=== PATIENT | female | born 1950 | race Caucasian/White ===

== ENCOUNTER → 2018-09-22 | Outpatient (CLI) | payer MEDICARE ==
[~2018-09-22] MED LIST: ASPI81CH PO; CHOL10002 PO; Cardizem CD 12120 MG PO; Coq-10100 MG PO; FISH OIL 1,3601 EACH PO; FLAX PO; MAGOXI400 PO; MEGA TAURINE1000 MG PO; PROBIOTIC1 EAC4 PO; Prinivil10 MG PO; XARELTO15 MG PO
== END ==
LOC: LAB SHORT 19:08 → LAB 19:08
DX: N39.0 Urinary tract infection, site not specified (principal)
CPT/HCPCS: 87086

== ENCOUNTER 2020-07-03 06:17 | Day surgery (SDC) | payer MEDICARE ==
[~2020-07-03] VITALS: Ht 167.6 cm; Wt 66.8 kg
[~2020-07-03 06:17] MED LIST changes: +DHEA PO; +Estradiol1 MG PO; +LEVSOD75 PO; +MULTI-VITAMIN1 EAC2 PO; +PRAV20 PO; +PROG100 PO; +TESTOSTERONE IM; +XARELTO20 M1 PO
[2020-07-03] MEDS ORDERED: Aldactone50 MG PO (06:52)
[2020-09-07] MEDS ORDERED: HYDR1TAB94 PO (13:23)
[2020-09-07] MEDS ORDERED: PROM25 PO (13:23)
== END 2020-07-03 08:55 | disposition home or self-care (01) ==
LOC: ORSCSDS 06:17
PROVIDERS: Obstetrics & Gynecology
PROC: 0UDB8ZX Extraction of Endometrium, Via Natural or Artificial Opening Endoscopic, Diagnostic (ICD-10-PCS; principal; 2020-07-03 07:30)
DX: N95.0 Postmenopausal bleeding (principal); N84.0 Polyp of corpus uteri; I48.91 Unspecified atrial fibrillation; I10 Essential (primary) hypertension; E05.90 Thyrotoxicosis, unspecified without thyrotoxic crisis or storm; Z79.01 Long term (current) use of anticoagulants; Z79.899 Other long term (current) drug therapy
CPT/HCPCS: 88305; J0690; J1100; J1885; J2250; J2405; J2704; J3010

== ENCOUNTER 2022-01-31 12:06 | Emergency (ER) | payer MEDICARE ==
[~2022-01-31] VITALS: Ht 167.6 cm; Wt 72.1 kg
[~2022-01-31 12:06] MED LIST changes: +Aldactone50 MG PO; +HYDR1TAB94 PO; +PROM25 PO
== END 2022-01-31 14:44 | disposition home or self-care (01) ==
LOC: ER 12:06
DX: M79.651 Pain in right thigh (principal); I10 Essential (primary) hypertension; Z79.899 Other long term (current) drug therapy; Z79.01 Long term (current) use of anticoagulants
CPT/HCPCS: 93971

== ENCOUNTER 2023-03-05 17:00 | Emergency (ER) | payer MEDICARE ==
[~2023-03-05] VITALS: Ht 167.6 cm; Wt 72.6 kg
[2023-03-05 17:54] LABS: BASOPHILS ABSOLUTE AUTO 0.07 K/mm3 (0.00-0.23); BASOPHILS PERCENT AUTO 1 % (0-2); EOSINOPHILS ABSOLUTE AUTO 0.25 K/mm3 (0.00-0.68); EOSINOPHILS PERCENT AUTO 2 % (0-6); Hematocrit 44.7 % (33.0-51.0); Hemoglobin 14.9 g/dL (11.5-16.0); IMMATURE GRAN ABSOLUTE AUTO 0.03 K/mm3 (0.00-0.10); IMMATURE GRAN PERCENT AUTO 0 % (0-1); LYMPHOCYTES ABSOLUTE AUTO 2.99 K/mm3 (0.84-5.20); LYMPHOCYTES PERCENT AUTO 27 % (21-46); MONOCYTES ABSOLUTE AUTO 0.65 K/mm3 (0.16-1.47); MONOCYTES PERCENT AUTO 6 % (4-13); Mean Corpuscular HGB 29.6 pg (26.0-34.0); Mean Corpuscular HGB Conc 33.3 g/dL (31.5-36.5); Mean Corpuscular Volume 89 fL (80-100); Mean Platelet Volume 10.3 fL (9.1-12.4); NEUTROPHILS ABSOLUTE AUTO 7.14 K/mm3 (1.96-9.15); NEUTROPHILS PERCENT AUTO 64 % (41-73); Platelet Count 393 K/mm3 (150-400); RDW Coefficient Variation 12.1 % (11.7-14.2); RDW Standard Deviation 39.2 fL (35.1-46.3); Red Blood Cell Count 5.03 M/mm3 (3.80-5.20); White Blood Cell Count 11.13 K/mm3 (4.00-11.30)
[2023-03-05 18:01] LABS: Albumin, Blood 4.5 g/dL (3.4-5.0); Albumin/Globulin Ratio 1.2 (0.8-1.8); Bilirubin, Total 0.6 mg/dL (0.1-1.0); Bun/Creatinine Ratio 12.7 (12.0-20.0); Calcium, Blood 9.7 mg/dL (8.5-10.1); Creatinine, Blood 1.1 mg/dL (0.40-1.00); Globulin, Blood 3.7 g/dL (2.2-4.0); Potassium, Blood 3.4 mmol/L (3.5-5.5); Total Protein, Blood 8.2 g/dL (6.4-8.2)
[2023-03-05 19:30] VITALS: BP 167/97
[2023-03-05] MEDS ORDERED: HYDR1TAB94 PO (19:37)
== END 2023-03-05 20:01 | disposition home or self-care (01) ==
LOC: ER 17:00
PROVIDERS: Student in an Organized Health Care Education/Training Program
DX: S82.851A Displaced trimalleolar fracture of right lower leg, initial encounter for closed fracture (principal); E87.6 Hypokalemia; I10 Essential (primary) hypertension; I48.91 Unspecified atrial fibrillation; E06.3 Autoimmune thyroiditis; Z88.6 Allergy status to analgesic agent; Z79.01 Long term (current) use of anticoagulants; Z79.899 Other long term (current) drug therapy; W10.9XXA Fall (on) (from) unspecified stairs and steps, initial encounter
CPT/HCPCS: 27818; 73590; 73600; 73610; 80053; 85025; 93005; 93010; 96374-59; 96375-59; 99152; 99284-25; A9270; J2405; J2704; J3010; J7030

== ENCOUNTER 2023-03-19 12:02 | Day surgery (SDC) | payer MEDICARE ==
[2023-03-19] VITALS (23 sets, daily range): BP systolic 124–180; BP diastolic 59–104
[~2023-03-19] VITALS: Ht 167.6 cm; Wt 68.2 kg
--- NOTE | 2023-03-19 12:15 | NUR ---
PT TO DAY SURGERY FOR OPEN REDUCTION INTERNAL FIXATION RIGHT ANKLE FRACTURE. PLAN OF CARE DISCUSSED. PT DAUGHTER IS AT BEDIDE AND WILL BE RIDE HOME.
--- NOTE | 2023-03-19 17:36 | NUR ---
PT ARRIVED TO [facility] VIA [facility]. PT REPORTING 10/10 PAIN IN RIGHT ANKLE. NO NAUSEA REPORTED. PT GIVEN ICE CHIPS AND APPLESAUSE. DAUGHTER AT BEDSIDE. VSS. ICE UNDER RIGHT KNEE AND ON ANTERIOR ANKLE.
--- NOTE | 2023-03-19 18:14 | NUR ---
PT REPORTED PAIN OF 10/10. DR CHAVEZ CONTACTED ABOUT PAIN. DR CHAVEZ REQUESTED A NERVE BLOCK. DR SCHULTE TO [facility] AND PERFORMED NERVE BLOCK. PT'S DAUGHTER'S AT BEDSIDE. PT UNABLE TO TOLERATE APPLE SAUCE AND WATER WITHOUT REPORTING FEELING NAUSEATED. SEE EMAR FOR NAUSEA MEDS GIVEN.
--- NOTE | 2023-03-19 18:32 | NUR ---
PT DAUGHTERS REQUESTING PT STAYS THE NIGHT DUE TO PT PAIN AND CONCERNS RELATED TO STEPS INTO THE HOME. PT DOES REPORT NAUSEA IS BETTER AND PAIN NOW 6/10 POST NERVE BLOCK. THIS RN CALLED DR CHAVEZ WHO AGREED PT CAN STAY THE NIGHT AND ADMIT TO HOSPITALIST SERVICE. THIS RN CALLED DR WINTERS, WHO WILL SEE PT IN APPROX 5-10 MINUTES. SURGICAL FLOOR BURIAL VAULT SETTER NOTIFIED, PT WILL GO TO ROOM 221.
--- NOTE | 2023-03-19 18:49 | NUR ---
ASSUMED PT CARE KVNG FONTANEZ RN. NO CHANGES. PT CIRCULATION REMAINS INTACT ON, RLE, DRESSING REMAINS CDI. PT LEG ELEVATED AND ICED. PT IS MUCH MORE COMFORTABLE AND ABLE TO REST BETTER SINCE BLOCK WAS GIVEN BY DR SCHULTE. REPORT TO LENO GUILLEN RN
[2023-03-20 02:52] VITALS: BP 136/64
[2023-03-20 05:56] LABS: BASOPHILS ABSOLUTE AUTO 0.02 K/mm3 (0.00-0.23); BASOPHILS PERCENT AUTO 0 % (0-2); EOSINOPHILS PERCENT AUTO 0 % (0-6); Hematocrit 35.4 % (33.0-51.0); Hemoglobin 11.6 g/dL (11.5-16.0); IMMATURE GRAN ABSOLUTE AUTO 0.06 K/mm3 (0.00-0.10); IMMATURE GRAN PERCENT AUTO 0 % (0-1); LYMPHOCYTES ABSOLUTE AUTO 0.57 K/mm3 (0.84-5.20); LYMPHOCYTES PERCENT AUTO 4 % (21-46); MONOCYTES ABSOLUTE AUTO 0.93 K/mm3 (0.16-1.47); MONOCYTES PERCENT AUTO 7 % (4-13); Mean Corpuscular HGB 29.9 pg (26.0-34.0); Mean Corpuscular HGB Conc 32.8 g/dL (31.5-36.5); Mean Corpuscular Volume 91 fL (80-100); Mean Platelet Volume 9.6 fL (9.1-12.4); NEUTROPHILS ABSOLUTE AUTO 11.78 K/mm3 (1.96-9.15); NEUTROPHILS PERCENT AUTO 88 % (41-73); Platelet Count 610 K/mm3 (150-400); RDW Coefficient Variation 12.7 % (11.7-14.2); RDW Standard Deviation 41.6 fL (35.1-46.3); Red Blood Cell Count 3.88 M/mm3 (3.80-5.20); White Blood Cell Count 13.36 K/mm3 (4.00-11.30)
--- NOTE | 2023-03-20 06:36 | NUR ---
SHIFT SUMMARY PT IS POD#1 FOR AN ELECTIVE OPEN REDUCTION AND INTERNAL FIXATION OF HER RIGHT TRIMALLEOLAR ANKLE FX. PT'S PAIN HAS BEEN WELL CONTROLLED PER EMAR AND A BLOCK ADMINISTERED BEFORE THE PT CAME TO THE FLOOR AT 1855 YESTERDAY (03/19/23). PT HAS GOTTEN UP TWICE THIS SHIFT TO URINATE AND CAN STAND AND PIVOT WELL WITH A FWW AND GAIT BELT TO THE BEDSIDE COMMODE. VITAL SIGNS HAVE BEEN STABLE THROUGHOUT THE SHIFT AND NO ACUTE EVENTS OCCURRED DURING THE NIGHT. BED IS IN LOWEST POSITION WITH THE PT'S CALL LIGHT BEING WITHIN REACH.
[2023-03-20 06:37] LABS: Bun/Creatinine Ratio 18.4 (12.0-20.0); Calcium, Blood 8.9 mg/dL (8.5-10.1); Creatinine, Blood 0.87 mg/dL (0.40-1.00); Potassium, Blood 4.1 mmol/L (3.5-5.5)
[2023-03-20 07:29] VITALS: BP 140/58
--- NOTE | 2023-03-20 14:57 | NUR ---
DISCHARGE SUMMARY S/P R ANKLE ORIF, A/OX4, VSS, TOLERATING PO, ABLE TO STAND PIVOT WELL WITH MINIMAL ASSISTANCE, SPINT WITH GAUZE AND KHARI WRAP TO R FOOT/ANKLE, PT REPORTS PAIN TOLERABLE. DISCUSSED DISCHARGE INSTRUCTIONS WITH THE PATIENT INCLUDING HOME CARE, MEDICATIONS, AND FOLLOW UP APPPOINTMENTS. IV ACCESS REMOVED PRIOR TO DC, PT ESCORTED OUT VIA WC TO PRIVATE AUTO TO GO HOME.
== END 2023-03-20 12:28 | disposition home or self-care (01) ==
LOC: ORSCMMR 12:02 → ORD 15:00 → SURS 18:50 → ORSCMMR 03-20 12:28
PROVIDERS: Family Medicine
DX: S82.851A Displaced trimalleolar fracture of right lower leg, initial encounter for closed fracture (principal); I48.91 Unspecified atrial fibrillation; I10 Essential (primary) hypertension; E78.5 Hyperlipidemia, unspecified; E07.9 Disorder of thyroid, unspecified; Z79.01 Long term (current) use of anticoagulants; Z79.899 Other long term (current) drug therapy
CPT/HCPCS: 36415; 80048; 85025; 97110; 97161; A9270; C1713; C1769; J0690; J1100; J1170; J2405; J2704; J2765; J3010; J7120

== ENCOUNTER 2024-11-22 07:51 | Observation (INO) | payer MEDICARE ==
[~2024-11-22] VITALS: Ht 167.6 cm; Wt 73.9 kg
[~2024-11-22 07:51] MED LIST changes: -CHOL10002 PO; -PROG100 PO; +ROSUVASTATIN CAL5 MG PO
[2024-11-22 08:16] LABS: BASOPHILS ABSOLUTE AUTO 0.07 K/mm3 (0.00-0.23); BASOPHILS PERCENT AUTO 1 % (0-2); EOSINOPHILS ABSOLUTE AUTO 0.36 K/mm3 (0.00-0.68); EOSINOPHILS PERCENT AUTO 3 % (0-6); Hematocrit 44.5 % (33.0-51.0); Hemoglobin 14.9 g/dL (11.5-16.0); IMMATURE GRAN ABSOLUTE AUTO 0.02 K/mm3 (0.00-0.10); IMMATURE GRAN PERCENT AUTO 0 % (0-1); LYMPHOCYTES ABSOLUTE AUTO 2.48 K/mm3 (0.84-5.20); LYMPHOCYTES PERCENT AUTO 23 % (21-46); MONOCYTES ABSOLUTE AUTO 0.70 K/mm3 (0.16-1.47); MONOCYTES PERCENT AUTO 7 % (4-13); Mean Corpuscular HGB Conc 33.5 g/dL (31.5-36.5); Mean Corpuscular Volume 89 fL (80-100); NEUTROPHILS ABSOLUTE AUTO 6.99 K/mm3 (1.96-9.15); NEUTROPHILS PERCENT AUTO 66 % (41-73); NRBC ABSOLUTE 0.00 K/mm3 (0.00-0.02); NRBC Auto 0.0 /100 WBC (0.0-0.2); Platelet Count 404 K/mm3 (150-400); RDW Coefficient Variation 12.2 % (11.7-14.2); RDW Standard Deviation 39.8 fL (35.1-46.3)
[2024-11-22 08:56] LABS: Alanine Aminotransfer (ALT/SGP 26.0 U/L (12-78); Albumin, Blood 4.1 g/dL (3.4-5.0); Albumin/Globulin Ratio 1.1 (0.8-1.8); Anion Gap 8.0 mmol/L (3-11); Aspartate Aminotrans (AST/SGOT 19.0 U/L (12-37); Bilirubin, Total 0.7 mg/dL (0.1-1.0); Blood Urea Nitrogen 19.0 mg/dL (8-24); CO2, Blood 27.0 mmol/L (21-32); Calcium, Blood 9.9 mg/dL (8.5-10.1); Chloride, Blood 105.0 mmol/L (98-108); Creatinine, Blood 0.98 mg/dL (0.40-1.00); Globulin, Blood 3.7 g/dL (2.2-4.0); Glucose, Blood 127.0 mg/dL (70-99); Potassium, Blood 3.8 mmol/L (3.5-5.5); Sodium, Blood 136.0 mmol/L (136-145); Total Protein, Blood 7.8 g/dL (6.4-8.2)
[2024-11-22] MEDS ORDERED: LOSARTAN POTAS100 M1 PO (09:07)
[2024-11-22] MEDS ORDERED: Ondansetron HCl 2 MG / ML 2ML Vial IV PRN (15:05)
[2024-11-22 18:21] VITALS: BP 168/70
[2024-11-22 19:16] VITALS: BP 150/66
--- NOTE | 2024-11-22 22:53 | NUR ---
SHIFT SUMMARY AT START OF SHIFT, PT S DAUGHTER IN ROOM. LEFT APPROX 2029. PT PLEASANT AND SITTING UP IN BED. TRANSFERRED CARE TO [facility] APPROX 2129.
[2024-11-22 23:41] VITALS: BP 171/63
[2024-11-23] VITALS (7 sets, daily range): BP systolic 129–168; BP diastolic 61–74
[2024-11-23] MEDS ORDERED: HydrALAZINE HCl 20 MG / ML 1ML Vial IV ONE (01:05)
[2024-11-23 05:17] LABS: BASOPHILS ABSOLUTE AUTO 0.05 K/mm3 (0.00-0.23); BASOPHILS PERCENT AUTO 1 % (0-2); EOSINOPHILS ABSOLUTE AUTO 0.39 K/mm3 (0.00-0.68); EOSINOPHILS PERCENT AUTO 4 % (0-6); Hematocrit 40.1 % (33.0-51.0); Hemoglobin 13.2 g/dL (11.5-16.0); IMMATURE GRAN ABSOLUTE AUTO 0.02 K/mm3 (0.00-0.10); IMMATURE GRAN PERCENT AUTO 0 % (0-1); LYMPHOCYTES ABSOLUTE AUTO 2.40 K/mm3 (0.84-5.20); LYMPHOCYTES PERCENT AUTO 23 % (21-46); MONOCYTES ABSOLUTE AUTO 0.73 K/mm3 (0.16-1.47); MONOCYTES PERCENT AUTO 7 % (4-13); Mean Corpuscular HGB Conc 32.9 g/dL (31.5-36.5); Mean Corpuscular Volume 91 fL (80-100); NEUTROPHILS ABSOLUTE AUTO 6.96 K/mm3 (1.96-9.15); NEUTROPHILS PERCENT AUTO 66 % (41-73); NRBC ABSOLUTE 0.00 K/mm3 (0.00-0.02); NRBC Auto 0.0 /100 WBC (0.0-0.2); Platelet Count 359 K/mm3 (150-400); RDW Coefficient Variation 12.4 % (11.7-14.2); RDW Standard Deviation 41.7 fL (35.1-46.3)
--- NOTE | 2024-11-23 05:31 | NUR ---
SHIFT SUMMARY: Pt admitted for chest pain and is a full code. Is alert and able to make needs known. ADLs have been IND. denies pain or discomfort when asked. Telly noted sinus in the 70s with no events. Has been NPO pending a stress test.
[2024-11-23 07:52] LABS: Alanine Aminotransfer (ALT/SGP 19.0 U/L (12-78); Albumin, Blood 3.6 g/dL (3.4-5.0); Albumin/Globulin Ratio 1.2 (0.8-1.8); Anion Gap 8.0 mmol/L (3-11); Aspartate Aminotrans (AST/SGOT 16.0 U/L (12-37); Bilirubin, Total 0.6 mg/dL (0.1-1.0); Blood Urea Nitrogen 17.0 mg/dL (8-24); CO2, Blood 27.0 mmol/L (21-32); Calcium, Blood 8.4 mg/dL (8.5-10.1); Chloride, Blood 107.0 mmol/L (98-108); Creatinine, Blood 0.91 mg/dL (0.40-1.00); Globulin, Blood 3.1 g/dL (2.2-4.0); Glucose, Blood 90.0 mg/dL (70-99); Potassium, Blood 3.5 mmol/L (3.5-5.5); Sodium, Blood 138.0 mmol/L (136-145); Total Protein, Blood 6.7 g/dL (6.4-8.2)
[2024-11-23] MEDS ORDERED: Misc. Capsule PO SCH (09:00)
[2024-11-23] MEDS ORDERED: Cholecalciferol 1000 Unit Tablet (=25MCG) PO SCH (09:00)
[2024-11-23] MEDS ORDERED: Enoxaparin 40 MG/0.4 ML SYR SC SCH (09:00)
[2024-11-23] MEDS ORDERED: DILT-XR120 M2 PO (16:51)
[2024-11-23] MEDS ORDERED: PROG100 PO (16:52)
[2024-11-23] MEDS ORDERED: VITAMIN D325 MC3 PO (17:52)
[2024-11-23] MEDS ORDERED: Hair, Skin & N1 EACH PO (17:53)
--- NOTE | 2024-11-23 19:31 | NUR ---
SHIFT SUMMARY CLIENT IS AOX4. MEDICATION COMPLIANT. COMPLETED SECOND HALF OF STRESS TEST. RESULTS WERE "NORMAL" WITH AN EF OF 61%. TELE SHOWED SINUS RYTHM. PROVIDER IS ADJUSTING BP MEDS WITH THE PLAN OF DISCHARGE TOMORROW. BED IS IN LOW POSITION AND CALL LIGHT IS WITHIN REACH.
[2024-11-24 00:27] VITALS: BP 138/72
--- NOTE | 2024-11-24 04:10 | NUR ---
SHIFT SUMMARY PT ADMITTED FOR CHEST PAIN. A&OX4. ABLE TO MAKE ALL NEEDS KNOWN. DENIES CHEST PAIN OR SOB BREATH THROUGHOUT SHIFT. DIET UPDATED PER RAILWAY SWITCHMAN TO HEART HEALTHY AND GLUTEN RESTRICTED DIET. PT DENIES PAIN. NO SWELLING NOTED. PLAN PER PROVIDER NOTE IS TO D/C CARDIZEM, CHANGES MADE TO METOPROLOL, RESUME XARELTO AND CONTINUE [place]ARTAN. PT ABLE TO REST THROUGHOUT THE NIGHT WITH BED IN LOWEST POSITION, RAILS X2 AND CALL LIGHT WITHIN REACH.
[2024-11-24 05:11] VITALS: BP 129/65
[2024-11-24 06:31] LABS: Anion Gap 10.0 mmol/L (3-11); Blood Urea Nitrogen 16.0 mg/dL (8-24); CO2, Blood 23.0 mmol/L (21-32); Calcium, Blood 8.1 mg/dL (8.5-10.1); Chloride, Blood 108.0 mmol/L (98-108); Creatinine, Blood 0.95 mg/dL (0.40-1.00); Glucose, Blood 86.0 mg/dL (70-99); Potassium, Blood 4.1 mmol/L (3.5-5.5); Sodium, Blood 137.0 mmol/L (136-145); Thyroid Stimulating Hormone 1.24 uIU/mL (0.360-4.800)
[2024-11-24 07:20] VITALS: BP 134/66
[2024-11-24] MEDS ORDERED: THEREMS MULTI400 MCG PO (11:46)
[2024-11-24] MEDS ORDERED: XARELTO20 MG PO (11:46)
[2024-11-24] MEDS ORDERED: METO50ER PO (11:46)
[2024-11-24] MEDS ORDERED: MELA3 PO (11:47)
--- NOTE | 2024-11-24 11:58 | NUR ---
DISCHARGE NOTE PATIENT A/OX4, ABLE TO MAKE NEEDS KNOWN. PLEASANT AND COOPERATIVE WITH CARE. INDEPENDENT IN ROOM. FAMILY AT BEDSIDE DURING DISCHARGE INSTRUCTION. PATIENT AGREEABLE TO DISCHARGE PLAN. FOLLOW UP WITH PRIMARY SCHEDULED FOR THIS WEDNESDAY, NEW MEDICATIONS FAXED TO [facility] PER PATIENT REQUEST. IV AND TELEMETRY REMOVED PRIOR TO DISCHARGE. PATIENT ASSISTED TO FAMILY VEHCILE VIA WHEELCHAIR BY [facility] STAFF. NO OTHER CONCERNS.
== END 2024-11-24 11:57 | disposition home or self-care (01) ==
LOC: ER 07:51 → ERHOLD 07:52 → MEDS 18:14
PROVIDERS: Student in an Organized Health Care Education/Training Program; ADMIT Internal Medicine
DX: R07.89 Other chest pain (principal); I48.20 Chronic atrial fibrillation, unspecified; E78.5 Hyperlipidemia, unspecified; I10 Essential (primary) hypertension; E03.9 Hypothyroidism, unspecified; E06.3 Autoimmune thyroiditis; Z78.0 Asymptomatic menopausal state; Z79.890 Hormone replacement therapy; Z79.899 Other long term (current) drug therapy; Z88.5 Allergy status to narcotic agent
CPT/HCPCS: 36415; 71046; 78452; 80048; 80053; 82947; 83880; 84443; 84484; 85025; 85379; 93005; 93010; 93017; 96372; 99285-25; A9270; A9500; G0378; J0706; J1650; J2785

== ENCOUNTER 2025-01-03 13:58 | Emergency (ER) | payer MEDICARE ==
[~2025-01-03] VITALS: Ht 167.6 cm; Wt 72.6 kg
[~2025-01-03 13:58] MED LIST changes: +DILT-XR120 M2 PO; +Hair, Skin & N1 EACH PO; +LOSARTAN POTAS100 M1 PO; +MELA3 PO; +METO50ER PO; +PROG100 PO; +THEREMS MULTI400 MCG PO; +VITAMIN D325 MC3 PO; +XARELTO20 MG PO
[2025-01-03 14:04] VITALS: BP 126/72
[2025-01-03 14:36] LABS: BASOPHILS ABSOLUTE AUTO 0.05 K/mm3 (0.00-0.23); BASOPHILS PERCENT AUTO 1 % (0-2); EOSINOPHILS ABSOLUTE AUTO 0.16 K/mm3 (0.00-0.68); EOSINOPHILS PERCENT AUTO 2 % (0-6); Hematocrit 41.3 % (33.0-51.0); Hemoglobin 13.7 g/dL (11.5-16.0); IMMATURE GRAN ABSOLUTE AUTO 0.03 K/mm3 (0.00-0.10); IMMATURE GRAN PERCENT AUTO 0 % (0-1); LYMPHOCYTES ABSOLUTE AUTO 1.39 K/mm3 (0.84-5.20); LYMPHOCYTES PERCENT AUTO 13 % (21-46); MONOCYTES ABSOLUTE AUTO 0.74 K/mm3 (0.16-1.47); MONOCYTES PERCENT AUTO 7 % (4-13); Mean Corpuscular HGB Conc 33.2 g/dL (31.5-36.5); Mean Corpuscular Volume 89 fL (80-100); NEUTROPHILS ABSOLUTE AUTO 8.03 K/mm3 (1.96-9.15); NEUTROPHILS PERCENT AUTO 77 % (41-73); NRBC ABSOLUTE 0.00 K/mm3 (0.00-0.02); NRBC Auto 0.0 /100 WBC (0.0-0.2); Platelet Count 346 K/mm3 (150-400); RDW Coefficient Variation 12.2 % (11.7-14.2); RDW Standard Deviation 39.1 fL (35.1-46.3)
[2025-01-03 15:10] LABS: Alanine Aminotransfer (ALT/SGP 22.0 U/L (12-78); Albumin, Blood 3.8 g/dL (3.4-5.0); Albumin/Globulin Ratio 1.1 (0.8-1.8); Anion Gap 5.0 mmol/L (3-11); Aspartate Aminotrans (AST/SGOT 20.0 U/L (12-37); Bilirubin, Total 0.5 mg/dL (0.1-1.0); Blood Urea Nitrogen 20.0 mg/dL (8-24); CO2, Blood 24.0 mmol/L (21-32); Calcium, Blood 9.3 mg/dL (8.5-10.1); Chloride, Blood 108.0 mmol/L (98-108); Creatinine, Blood 1.11 mg/dL (0.40-1.00); Globulin, Blood 3.4 g/dL (2.2-4.0); Glucose, Blood 119.0 mg/dL (70-99); Potassium, Blood 3.9 mmol/L (3.5-5.5); Sodium, Blood 133.0 mmol/L (136-145); Total Protein, Blood 7.2 g/dL (6.4-8.2)
== END 2025-01-03 15:55 | disposition home or self-care (01) ==
LOC: ER 13:58
PROVIDERS: Student in an Organized Health Care Education/Training Program
DX: I48.91 Unspecified atrial fibrillation (principal); E87.1 Hypo-osmolality and hyponatremia; R73.9 Hyperglycemia, unspecified; I10 Essential (primary) hypertension; E03.9 Hypothyroidism, unspecified; Z88.5 Allergy status to narcotic agent; Z79.890 Hormone replacement therapy; Z79.01 Long term (current) use of anticoagulants; Z79.899 Other long term (current) drug therapy
CPT/HCPCS: 71045; 80053; 83880; 84484; 85025; 93005; 93010; 99285-25